=== PATIENT | female | born 1990 | race Hispanic/Latino ===

== ENCOUNTER 2017-11-07 05:30 | Day surgery (SDC) | payer OTHER ==
[2017-11-06 14:53] VITALS: BP 122/70
[2017-11-06 15:05] LABS: BASOPHILS % (AUTO) 0.6 % (0.0-5.0); HEMATOCRIT 42.1 % (36-48); LYMPHOCYTES % (AUTO) 37.1 % (21.0-51.0); MEAN CORPUSCULAR HEMOGLOBIN 28.1 pg (27.0-33.0); MEAN CORPUSCULAR HGB CONC 33.6 g/dL (32.0-36.0); MEAN CORPUSCULAR VOLUME 83.8 fL (79-99); MONOCYTES % (AUTO) 7.4 % (3.0-13.0); NEUTROPHILS % (AUTO) 52.9 % (40.0-77.0); PLATELET COUNT (AUTO) 330 K/uL (130-400); RED BLOOD CELL COUNT(AUTO) 5.03 MIL/uL (4.00-5.50); WHITE BLOOD COUNT (AUTO) 7.3 K/uL (4.8-10.8)
[2017-11-07] VITALS (17 sets, daily range): BP systolic 100–135; BP diastolic 58–85
[~2017-11-07] VITALS: Ht 161.3 cm; Wt 76.6 kg
[2017-11-07] MEDS ORDERED: LACTATED RINGERS 1000ML 1,000 ML IV ONE (05:49)
[2017-11-07] MEDS ORDERED: LIDOCAINE PF 2% 5ML ABBOJECT ONE (07:15)
[2017-11-07] MEDS ORDERED: PROPOFOL 10 MG/ML 20ML VIAL IV ONE (07:16)
[2017-11-07] MEDS ORDERED: FENTANYL CITRATE PF 50 MCG/1 ML 2ML VIAL ONE (07:16)
[2017-11-07] MEDS ORDERED: MIDAZOLAM HCL 1 MG/ML 2ML VIAL ONE (07:16)
== END 2017-11-07 09:22 | disposition home or self-care (01) ==
LOC: SUH 05:30 → DAH 05:30 → SUH 09:22
PROVIDERS: ATTEND Obstetrics & Gynecology
DX: N92.1 Excessive and frequent menstruation with irregular cycle (principal); Z80.3 Family history of malignant neoplasm of breast; Z68.30 Body mass index [BMI] 30.0-30.9, adult
CPT/HCPCS: 36415; 58120; 58301; 84703; 85025; 86850; 86900; 86901; 88300; 88305; A4315; A4510; A4600; J2001; J2250; J2704; J3010; J7030; J7120

== ENCOUNTER 2021-12-15 07:16 | Day surgery (SDC) | payer OTHER, MEDICAID ==
[2021-12-14 11:31] LABS: BASOPHILS % (AUTO) 0.7 % (0.0-5.0); EOSINOPHILS % (AUTO) 2.2 % (0.0-8.0); HEMATOCRIT 41.7 % (36-48); LYMPHOCYTES % (AUTO) 42.7 % (21.0-51.0); MEAN CORPUSCULAR HGB CONC 31.9 g/dL (32.0-36.0); MEAN CORPUSCULAR VOLUME 84.8 fL (79-99); MONOCYTES % (AUTO) 6.7 % (3.0-13.0); PLATELET COUNT (AUTO) 291 K/uL (130-400); RED BLOOD CELL COUNT(AUTO) 4.92 MIL/uL (4.00-5.50); RED CELL DISTRIBUTION WIDTH 12.4 % (11.0-15.5); WHITE BLOOD COUNT (AUTO) 7.3 K/uL (4.8-10.8)
[2021-12-14 11:38] LABS: CREATININE 0.6 mg/dL (0.5-1.5); POTASSIUM 4.3 mmol/L (3.5-5.1)
[2021-12-14 12:05] LABS: INR 0.93 (0.85-1.15); PROTHROMBIN TIME 10.2 SEC (9.6-11.6)
[2021-12-14 12:07] LABS: PARTIAL THROMBOPLASTIN TIME 28.6 SEC (26.3-35.5)
[~2021-12-15] VITALS: Ht 157.5 cm; Wt 81.6 kg
[2021-12-15] VITALS (37 sets, daily range): BP systolic 103–139; BP diastolic 59–91
[~2021-12-15 07:16] MED LIST: METO-408 PO; NORG1TAB75 PO
[2021-12-15] MEDS ORDERED: NALOXONE HCL 0.4 MG/1 ML ML ONE (08:14)
[2021-12-15] MEDS ORDERED: LIDOCAINE HCL 2% VISCOUS 15 ML UDCUP ONE (08:14)
[2021-12-15] MEDS ORDERED: FLUMAZENIL 0.1MG/1ML 5ML VIAL IV ONE (08:14)
[2021-12-15] MEDS ORDERED: FENTANYL CITRATE PF 50 MCG/1 ML 2ML VIAL ONE (08:16)
[2021-12-15] MEDS ORDERED: MIDAZOLAM HCL 1 MG/ML 2ML VIAL ONE (08:17)
[2021-12-15] MEDS ORDERED: PROPOFOL 1000 MG/100 ML 100 ML IV ONE (09:46)
[2021-12-15] MEDS ORDERED: 0.9%NACL 1000ML 1,000 ML IV ONE (11:30)
== END 2021-12-15 11:30 | disposition home or self-care (01) ==
LOC: DAH 07:16
PROVIDERS: ATTEND Student in an Organized Health Care Education/Training Program
DX: I08.1 Rheumatic disorders of both mitral and tricuspid valves (principal); F17.200 Nicotine dependence, unspecified, uncomplicated; Z79.899 Other long term (current) drug therapy; Z98.890 Other specified postprocedural states; Z82.49 Family history of ischemic heart disease and other diseases of the circulatory system; Z83.3 Family history of diabetes mellitus; Z82.3 Family history of stroke; Z72.89 Other problems related to lifestyle; Z79.01 Long term (current) use of anticoagulants
CPT/HCPCS: 36415; 80048; 84703; 85025; 85610; 85730; 93005; 93312; 93325; A4215; A4216; A4221; A4222; A4223 ×3; A4606; A4615; A4663; A7002; J2250; J2704; J3010; J7030; 99152; J2310; J3490

== ENCOUNTER → 2023-01-17 | Outpatient (CLI) | payer OTHER, MEDICAID | END | disposition home or self-care (01) | LOC: SHCH 14:07 | PROVIDERS: ATTEND Student in an Organized Health Care Education/Training Program | DX: I36.1 Nonrheumatic tricuspid (valve) insufficiency (principal) | CPT/HCPCS: 93306 ==